=== PATIENT | male | born 1990 | race Caucasian/White ===

== ENCOUNTER 2017-06-30 13:23 | Emergency (ER) | payer OTHER ==
[2017-06-30] MEDS ORDERED: LIDOCAINE 1%-EPI 1:100000 20 ML MDV SUBQ STA (13:47)
[2017-06-30] MEDS ORDERED: HYDROmorphone 1 MG/ML CARPUJECT IVP STA ×2 (13:48→14:13)
--- NOTE | 2017-06-30 13:50 | ED Physician Documentation ---
PD HPI UPPER EXT INJURY - Stated complaint Stated Complaint: ARM INJURY - Chief complaint Chief Complaint: Trauma Ext - History obtained from History obtained from: Patient - History of Present Illness Location: Right, Shoulder Type of injury: Fall (while windsurfing. Hit R shoulder directly on ground. Has dislocated same shoulder x1.) Timing - onset: Today Review of Systems Constitutional: reports: Reviewed and negative Nose: reports: Reviewed and negative Cardiac: reports: Reviewed and negative Respiratory: reports: Reviewed and negative PD PAST MEDICAL HISTORY - Present Medications Home Medications: Ambulatory Orders Medication Instructions Recorded Confirmed HYDROcod/ACETAM 5/325 [[place] 5/325] 1 - 2 ea PO Q6H PRN #15 tablet 06/30/17 - Allergies Allergies/Adverse Reactions: Allergies Allergy/AdvReac Type Severity Reaction Status Date / Time No Known Drug Allergies Allergy Verified 06/30/17 13:47 PD ED PE NORMAL - Vitals Vital signs reviewed: Yes - General General: Alert and oriented X 3, No acute distress - HEENT HEENT: PERRL, EOMI - Neck Neck: Supple, no meningeal sign, No bony TTP - Cardiac Cardiac: RRR, No murmur - Respiratory Respiratory: No respiratory distress, Clear bilaterally - Abdomen Abdomen: Non tender - Derm Derm: Normal color, Warm and dry - Extremities Extremities: Other (Obvious deformity of the right shoulder consistent with an anterior shoulder dislocation without any range of motion.) - Neuro Neuro: Alert and oriented X 3, Other (He does have partially gone sensation R axillary distribution) Eye Opening: Spontaneous Motor: Obeys Commands Verbal: Oriented GCS Score: 15 - Psych Psych: Normal mood, Normal affect Results - Vitals Vitals: Vital Signs - 24 hr 06/30/17 06/30/17 06/30/17 13:30 14:19 15:17 Temperature 36.6 C Heart Rate 65 66 66 Respiratory 18 19 18 Rate Blood Pressure 141/74 H 147/67 H 140/78 H O2 Saturation 100 99 98 06/30/17 06/30/17 06/30/17 15:36 15:38 15:41 Temperature Heart Rate 84 65 61 Respiratory 18 14 14 Rate Blood Pressure 133/79 H 130/73 O2 Saturation 96 100 Oxygen O2 Source Room air Oxygen Flow Rate 4 Procedures - Reduction Body part reduced: Right, Shoulder Fracture or dislocation: Dislocation Anesthesia: Hematoma block (10ml lidocaine in the joint) Shoulder reduction technique: [place] / ext rotation Reduction aftercare: Sling - Procedural sedation Sedation prep: Informed consent, Time out completed, AHA 1 - healthy, IV O2 monitor, ET CO2 monitor Sedation medications: propofol (total 320mg in divided doses) Patient status during sedation: Responds to tactile, Vitals remained stable, Maintained airway, Recovered uneventfully. No: Respiratory depression, Hypoxia , Needed resp assistance Sedation recovery: Recovered uneventfully PD MEDICAL DECISION MAKING - ED course ED course: Seems like an isolated injury, he was reexamined several times, his neck remains nontender on subsequent examinations even when comfortable after reduction. Departure - Departure Disposition: Home, Self Care Clinical Impression: Shoulder dislocation, recurrent Qualifiers: Laterality: right Qualified Code(s): M24.411 - Recurrent dislocation, right shoulder Condition: Good Record reviewed to determine appropriate education?: Yes Instructions: ED Dislocation Shoulder Redu Prescriptions: HYDROcod/ACETAM 5/325 [[place] 5/325] 1 - 2 ea PO Q6H PRN #15 tablet PRN Reason: Pain Comments: Keep the sling on until [facility], check in there on Sunday with the copy of your x-rays. Return if worse. Do not drive today. Do not operate heavy machinery today. Do not drink or drive while taking narcotic pain medication. Note that many narcotic pain relievers also contain Tylenol/acetaminophen. Please ensure that your total dose of acetaminophen from all sources does not exceed 3 g (3000 mg) per day. You may get constipated while on this medication. Take a stool softener such as Colace twice a day while you are on it. Also add an [id number] laxative such as senna or MiraLAX on any day that you do not have a bowel movement. If you received a narcotic pain medication or sedative while in the emergency department, do not drive for the next 24 hours.
[2017-06-30] MEDS ORDERED: ONDANSETRON 4 MG/2 ML VIAL IVP STA (14:37)
[2017-06-30] MEDS ORDERED: ONDANSETRON 4 MG/2 ML VIAL ONE (14:37)
[2017-06-30] MEDS ORDERED: PROPOFOL 200 MG/20 ML VIAL IVP STA ×2 (14:46→15:29)
--- NOTE | 2017-06-30 15:00 | XRAY Report ---
EXAM: RIGHT SHOULDER RADIOGRAPHY EXAM DATE: 06/30/2017 02:45 PM. CLINICAL HISTORY: Shoulder inj. COMPARISON: None. TECHNIQUE: 3 views. FINDINGS: Bones: No visualized fracture. Joints: The humeral head is dislocated anteriorly and inferiorly relative to the glenoid. Acromioclav icular joint is preserved. Soft tissues: Unremarkable. IMPRESSION: Anterior glenohumeral dislocation. [facility] Referring Provider Line: [phone] SITE ID: [id number]
[2017-06-30] MEDS ORDERED: PROPOFOL 200 MG/20 ML VIAL IVP ONE (15:32)
--- NOTE | 2017-06-30 16:01 | XRAY Preliminary Report ---
Exam: XR SHOULDER 1 VIEW RT IMPRESSION: Successful reduction of the right shoulder dislocation on single view. [facility] SITE ID: [id number]
--- NOTE | 2017-06-30 16:02 | XRAY Report ---
EXAM: RIGHT SHOULDER RADIOGRAPHY EXAM DATE: 06/30/2017 03:45 PM. CLINICAL HISTORY: Post reduction. COMPARISON: Same day. TECHNIQUE: 1 views. FINDINGS: Glenohumeral alignment appears normal on single view. No visualized fracture. IMPRESSION: Successful reduction of the right shoulder dislocation on single view. [facility] Referring Provider Line: [phone] SITE ID: [id number]
[2017-06-30 16:24] VITALS: BP 133/60
== END 2017-06-30 16:22 | disposition home or self-care (01) ==
LOC: ED 13:23
DX: M24.411 Recurrent dislocation, right shoulder (principal); Y93.18 Activity, surfing, windsurfing and boogie boarding
CPT/HCPCS: 23650; 73020; 73030; 94770; 99152; 99283; 99284; J1170